=== PATIENT | female | born 1975 | race Caucasian/White ===

== ENCOUNTER 2019-08-17 13:02 | Emergency (ER) | payer BC, OTHER ==
[~2019-08-17] VITALS: Ht 160 cm; Wt 65.0 kg
[2019-08-17] MEDS ORDERED: LACTATED RINGERS 1,000 ML IV ONE ×2 (13:09→13:14)
[2019-08-17] MEDS ORDERED: ASPIRIN 81 MG CHEW (CHILDREN'S ASA) PO ONE (13:15)
[2019-08-17] MEDS ORDERED: NITROGLYCERIN 0.4 MG SL TABS BTL 25'S SL PRN (13:15)
--- NOTE | 2019-08-17 13:18 | NUR ---
This RN called [facility] Walk-in clinic to receive report on this patient that was sent to ER via ambulance. Pt was driving from [place] and 1 hour prior to arriving at walk-in clinic the patient started to have chest pain that radiated to her back and had nausea. Pt's vital signs were 90 heart rate, 150/80 blood pressure, 98% on room air and EKG was remarkable. Pt has history of anxiety. Pt has been on statins. (1) 81 mg of aspirin was given at clinic.
--- NOTE | 2019-08-17 13:22 | ED Chest Pain ---
General Chief Complaint: Chest Pain Stated Complaint: CHEST PAIN Source: patient, EMS Exam Limitations: no limitations History of Present Illness Date Seen by Provider: Aug 17, 2019 Time Seen by Provider: 13:07 Initial Comments Patient arrives the ER from urgent care walk-in by EMS with chief complaint of chest pain substernal radiating to her back mostly as pressure. She says it started out doubling her over but now is about a 1 out of 10. She was trying to get home to [place] where she lives and where her primary care doctor is but she said she could not make it. The urgent care gave her 81 mg of aspirin and obtain vital signs heart rate 90, blood pressure 150/80, oxygen sats 98% on room air and an EKG that did not demonstrate ST elevation VT. EMS obtained a twelve-lead which did not demonstrate any ST changes and transported the patient on 2 L by nasal cannula. Patient has no baseline oxygen dependency nor personal heart disease nor family medical history. She does have a history of high cholesterol but did not tolerate statins due to them causing memory loss. She has a history of hypertension but no diabetes or tobacco dependence. She's never experienced a pain and pressure like this. She does of a history of anxiety and has tried several anti-anxiety medicines but has not been on anything for the past year. She has no history of panic attacks. She has no history of GERD or indigestion. She did not take anything for her symptoms other than what she was given. She says that she and her have been working on demolishing a house for the past week and on Friday she started feeling tired and having increased pain and sensitivity all over her skin. She thought maybe she was exposed to something when they were demolishing the house. She's had malaise, fatigue for the past couple days and spent most of the day resting. Her chest pain began today while she was driving home. She denies nausea, fever or chills. She did wake up yesterday with sweats after a nap. She does not take hormone replacement therapy or oral contraceptives. She has a history of hysterectomy. Allergies and Home Medications Allergies Coded Allergies: No Known Drug Allergies (Unverified , 08/17/19) Home Medications Azithromycin 250 Mg Tablet, 250 MG PO DAILY Prescribed by: MARIAJOSE TOVAR on 08/17/19 9786 Cefdinir 300 Mg Capsule, 300 MG PO BID Prescribed by: MARIAJOSE TOVAR on 08/17/19 9260 Patient Home Medication List Home Medication List Reviewed: Yes Review of Systems Review of Systems Constitutional: No chills, No diaphoresis, No fever; malaise, weakness EENTM: No Blurred Vision, No Double Vision Respiratory: Denies Cough, Denies Shortness of Air Cardiovascular: See HPI, Chest Pain; Denies Edema Gastrointestinal: Denies Abdominal Pain, Denies Constipated, Denies Diarrhea, Denies Nausea, Denies Poor Fluid Intake, Denies Vomiting Genitourinary: Denies Burning, Denies Discharge Musculoskeletal: No back pain, No joint pain Skin: No pruritus, No rash Psychiatric/Neurological: Denies Headache, Denies Numbness All Other Systems Reviewed Negative Unless Noted: Yes Past Xixllmw-Zutayy-Ovooms Hx Patient Social History Alcohol Use: Denies Use Recreational Drug Use: No Smoking Status: Never a Smoker Physical Exam Vital Signs Vital Signs - First Documented 08/17/19 08/17/19 13:02 13:10 Temp 36.2 Pulse 87 Resp 18 B/P (MAP) 125/84 (98) Pulse Ox 99 O2 Delivery Room Air Capillary Refill : Height, Weight, BMI Height: '" Weight: lbs. oz. kg; BMI Method: General Appearance: WD/WN, Anxious, Mild Distress HEENT: PERRL/EOMI, Pharynx Normal, Moist Mucous Membranes Neck: Full Range of Motion, Normal Inspection Respiratory: Chest Non Tender, Lungs Clear, Normal Breath Sounds, No Accessory Muscle Use, No Respiratory Distress Cardiovascular: Regular Rate, Rhythm, No Edema, No Gallop, No JVD, No Murmur, Normal Peripheral Pulses Gastrointestinal: Normal Bowel Sounds, No Organomegaly, Soft, Tenderness (mild, epigastric) Extremity: Normal Capillary Refill, Normal Inspection, Normal Range of Motion, Non Tender, No Calf Tenderness Neurologic/Psychiatric: Alert, Oriented x3, No Motor/Sensory Deficits Skin: Normal Color, Warm/Dry Progress/Results/Core Measures Results/Orders Lab Results Laboratory Tests Test 08/17/19 13:08 08/17/19 14:50 08/17/19 15:04 Range/Units White Blood Count 4.9 4.3-11.0 10^3/uL Red Blood Count 4.56 4.35-5.85 10^6/uL Hemoglobin 13.5 11.5-16.0 G/DL Hematocrit 40 35-52 % Mean Corpuscular Volume 88 80-99 FL Mean Corpuscular Hemoglobin 30 25-34 PG Mean Corpuscular Hemoglobin Concent 34 32-36 G/DL Red Cell Distribution Width 12.7 10.0-14.5 % Platelet Count 169 130-400 10^3/uL Mean Platelet Volume 9.8 7.4-10.4 FL Neutrophils (%) (Auto) 59 42-75 % Lymphocytes (%) (Auto) 31 12-44 % Monocytes (%) (Auto) 9 0-12 % Eosinophils (%) (Auto) 0 0-10 % Basophils (%) (Auto) 0 0-10 % Neutrophils # (Auto) 2.9 1.8-7.8 X 10^3 Lymphocytes # (Auto) 1.5 1.0-4.0 X 10^3 Monocytes # (Auto) 0.4 0.0-1.0 X 10^3 Eosinophils # (Auto) 0.0 0.0-0.3 10^3/uL Basophils # (Auto) 0.0 0.0-0.1 10^3/uL Prothrombin Time 12.1 L 12.2-14.7 SEC INR Comment 0.9 0.8-1.4 Activated Partial Thromboplast Time 27 24-35 SEC Sodium Level 137 135-145 MMOL/L Potassium Level 4.0 3.6-5.0 MMOL/L Chloride Level 103 98-107 MMOL/L Carbon Dioxide Level 20 L 21-32 MMOL/L Anion Gap 14 5-14 MMOL/L Blood Urea Nitrogen 13 7-18 MG/DL Creatinine 0.82 0.60-1.30 MG/DL Estimat Glomerular Filtration Rate > 60 BUN/Creatinine Ratio 16 Glucose Level 105 70-105 MG/DL Calcium Level 9.0 8.5-10.1 MG/DL Corrected Calcium 9.0 8.5-10.1 MG/DL Magnesium Level 1.7 1.6-2.4 MG/DL Total Bilirubin 0.2 0.1-1.0 MG/DL Aspartate Amino Transf (AST/SGOT) 18 5-34 U/L Alanine Aminotransferase (ALT/SGPT) 12 0-55 U/L Alkaline Phosphatase 75 40-136 U/L Myoglobin 21.0 10.0-92.0 NG/ML Troponin I < 0.30 < 0.30 <0.30 NG/ML Pro-B-Type Natriuretic Peptide 15.3 <75.0 PG/ML Total Protein 6.9 6.4-8.2 GM/DL Albumin 4.0 3.2-4.5 GM/DL Lipase 33 8-78 U/L My Orders Orders - MARIAJOSE TOVAR Lactated Ringers (Lr 1000 Ml Iv Solution (08/17/19 13:09) Ed Iv/Invasive Line Start (08/17/19 13:14) Lactated Ringers (Lr 1000 Ml Iv Solution (08/17/19 13:14) Cbc With Automated Diff (08/17/19 13:14) Magnesium (08/17/19 13:14) Chest 1 View Ap/Pa Only (08/17/19 13:14) Ekg Tracing (08/17/19 13:14) Comprehensive Metabolic Panel (08/17/19 13:14) Myoglobin Serum (08/17/19 13:14) Protime With Inr (08/17/19 13:14) Partial Thromboplastin Time (08/17/19 13:14) O2 (08/17/19 13:14) Monitor-Rhythm Ecg Trace Only (08/17/19 13:14) Lipid Panel (08/18/19 06:00) Aspirin Chewable Tablet (Baby Aspirin Ch (08/17/19 13:15) Nitroglycerin 0.4 Mg Btl 25's (Nitrostat (08/17/19 13:15) Ed Iv/Invasive Line Start (08/17/19 13:14) Creatine Kinase (08/17/19 13:14) Lipase (08/17/19 13:14) Troponin I Fs (08/17/19 13:14) Probnp Fs (08/17/19 13:14) Ct Angio Chest W (08/17/19 13:14) Iohexol Injection (Omnipaque 350 Mg/Ml 1 (08/17/19 13:30) Contrast Received (Contrast Received) (08/17/19 13:30) Sodium Chloride Flush (Catheter Flush Sy (08/17/19 13:30) Ns (Ivpb) (Sodium Chloride 0.9% Ivpb Bag (08/17/19 13:30) Ct Abdomen/Pelvis W (08/17/19 14:12) Blood Culture (08/17/19 14:33) Coronavirus Sars-Cov-2 So 2019 (08/17/19 14:33) Ceftriaxone For Iv Use (Rocephin For I (08/17/19 14:45) Azithromycin Tablet (Zithromax Tablet) (08/17/19 14:45) Troponin I Fs (08/17/19 14:54) Medications Given in ED Current Medications Medications Dose Ordered Sig/Rosi Route Start Time Stop Time Status Last Admin Dose Admin Aspirin 243 mg ONCE ONCE PO 08/17/19 13:15 08/17/19 13:17 DC 08/17/19 13:22 243 MG Azithromycin 500 mg ONCE ONCE PO 08/17/19 14:45 08/17/19 14:46 DC 08/17/19 14:49 500 MG Ceftriaxone Sodium 1000 mg/ Sterile Water 10 ml @ 200 mls/hr ONCE ONCE IV 08/17/19 14:45 08/17/19 14:47 DC 08/17/19 14:49 200 MLS/HR Iohexol 125 ml ONCE ONCE IV 08/17/19 13:30 08/17/19 13:31 DC 08/17/19 14:18 125 ML Lactated Ringer's 1,000 ml @ 0 mls/hr Q0M ONCE IV 08/17/19 13:14 08/17/19 13:17 DC 08/17/19 13:22 999 MLS/HR Nitroglycerin 0.4 mg UD PRN SL 08/17/19 13:15 08/17/19 13:22 0.4 MG Sodium Chloride 10 ml NEEDED PRN IV 08/17/19 13:30 08/17/19 14:18 10 ML Sodium Chloride 100 ml ONCE ONCE IV 08/17/19 13:30 08/17/19 13:31 DC 08/17/19 14:17 80 ML Vital Signs/I&O 08/17/19 08/17/19 13:02 13:10 Temp 36.2 Pulse 87 Resp 18 B/P (MAP) 125/84 (98) Pulse Ox 99 O2 Delivery Room Air Room Air Progress Progress Note #1: Time: 13:23 Progress Note We'll give her a liter lactated Ringer's because she could be experiencing heat exhaustion related to demolishing a house for the past week with exposure. She received 81 mg aspirin at the urgent care clinics were going to give her 243 mg aspirin to chew and swallow. We'll trial nitroglycerin. Chest x-ray and CT scan to rule out AAA, pulmonary embolism. On room air she is running 98% and has no tachycardia. She does have risk factors for coronary disease including hypertension, hyperlipidemia. GERD is a possibility as well. Anxiety certainly plays a role in this and we have offered her something for her anxiety while we are doing this workup. She has declined at this time. If her initial troponin is negative and we do not find anything else emergent then her heart score would be to points putting her at low risk. 0.9-1.7% 30-day MACE; Repeat troponin at 3 hours and if negative, discharge home with outpatient follow-up. Progress Note #2: Time: 14:21 Progress Note Patient was noted to have a large distended gas bubble on the service line coordinator imaging for her CT and she had tenderness on palpation of her abdomen so a CT abdomen and pelvis was ordered in conjunction with a CT angiogram without having any extra contrast looking for obstruction. Progress Note #3: Time: 14:46 Progress Note Patient has pneumonia and regular Rocephin and azithromycin. We discussed testing for COVID-19 and she has consented to do this. She does not need hospitalization at this time. She has aseptic vital signs and no oxygen dependency. No rest or distress. Plan to treat her outpatient with antibiotics and follow-up in one week with her primary care doctor. We will obtain cultures in case her situation worsens. Delta troponin at 1500. Initial ECG Impression Date: Aug 17, 2019 Initial ECG Impression Time: 12:06 Initial ECG Rate: 94 Initial ECG Rhythm: Normal Sinus Initial ECG Intervals: Normal Initial ECG Impression: Normal Initial ECG Comparisson: No Previous ECG Available Comment Urgent care 12-lead EKG: Normal sinus rhythm without clinically relevant ST elevation or depression. Borderline prolonged QTc 460 ms. EKG #1: EKG Time: 12:54 Rate: 87 Rhythm: Normal Sinus Intervals: Normal ECG Comparisson: Unchanged ECG Impression: Normal Comment 12-lead from EMS. Normal sinus rhythm without clinically relevant ST elevation or depression. EKG #2: EKG Time: 13:09 Rate: 82 Rhythm: Normal Sinus Intervals: Normal ECG Comparisson: Unchanged ECG Impression: Normal Comment Initial EKG in the ER: Normal sinus rhythm without any ST-T wave elevation or depression. Diagnostic Imaging Diagonstic Imaging: Xray Plain Films/CT/US/NM/MRI: chest (1v) Comments NAME: MARILIN CHRISTENSEN [facility] REC#: [id number] PT STATUS: REG ER : 1975 PHYSICIAN: MARIAJOSE TOVAR MD ADMIT DATE: 08/17/19/ER FS Draft Date of Exam:08/17/19 CHEST 1 VIEW AP/PA ONLY INDICATION: Chest pain and pressure. TIME OF EXAM: 01:25 p.m. COMPARISON: No prior studies are available for comparison. FINDINGS: The heart size is normal. There is airspace infiltrate in the right base consistent with pneumonia. The pulmonary vascularity is normal. The left lung is clear. No effusion or pneumothorax is seen. IMPRESSION: Right basilar pneumonia. Dictated on workstation # [id number] Dict: 08/17/19 1338 Trans: 08/17/19 1341 [facility] [id number] Interpreted by: BRIEN MACHADO MD Electronically signed by: Reviewed: Reviewed by Tx Diagonstic Imaging: CT (angiogram) Plain Films/CT/US/NM/MRI: chest Comments NAME: AMRILIN CHRISTENSEN [facility] REC#: [id number] PT STATUS: REG ER : 1975 PHYSICIAN: MARIAJOSE TOVAR MD ADMIT DATE: 08/17/19/ER FS Draft Date of Exam:08/17/19 CT ANGIO CHEST W PROCEDURE: CT angiography of the chest with contrast. TECHNIQUE: Multiple contiguous axial images were obtained through the chest after uneventful bolus administration of intravenous contrast. 3D reconstructed CTA MIP acquisitions were also performed. Auto Exposure Controls were utilized during the CT exam to meet ALARA standards for radiation dose reduction. INDICATION: Chest pain. COMPARISON: No prior CT study is available for comparison. FINDINGS: Evaluation of the pulmonary arterial system is without evidence of thromboembolism. No filling defects are seen within the central, lobar, or segmental branches. No pericardial or pleural fluid is identified. Note is made of a circumscribed nodule in the right breast medially measuring 9 mm. Parenchymal evaluation does show some airspace infiltrate in the posterolateral right lower lobe, consistent with pneumonia. This correlates with the abnormality noted on the chest x-ray. IMPRESSION: 1. No evidence of pulmonary embolism or thoracic aortic dissection. 2. Right lower lobe pneumonia. Dictated on workstation # [id number] Dict: 08/17/19 1432 Trans: 08/17/19 1436 [id number] Interpreted by: BRIEN MACHADO MD Electronically signed by: Reviewed: Reviewed by Tx Diagonstic Imaging: CT (with IV contrast) Plain Films/CT/US/NM/MRI: abdomen, pelvis Comments [facility] [place] NAME: MARILIN CHRISTENSEN [facility] REC#: [id number] PT STATUS: REG ER : 1975 PHYSICIAN: MARIAJOSE TOVAR MD ADMIT DATE: 08/17/19/ER FS Draft Date of Exam:08/17/19 CT ABDOMEN/PELVIS W PROCEDURE: CT abdomen and pelvis with contrast. TECHNIQUE: Multiple contiguous axial images were obtained through the abdomen and pelvis after administration of intravenous contrast. Auto Exposure Controls were utilized during the CT exam to meet ALARA standards for radiation dose reduction. INDICATION: Worsening chest pain. COMPARISON: No prior studies are available for comparison. FINDINGS: The air space infiltrate in the right lower lobe, consistent with pneumonia, is again noted. The liver and gallbladder are unremarkable. No biliary ductal dilatation is identified. The pancreas and spleen are unremarkable. No adrenal mass is detected. The kidneys demonstrate normal excretion of contrast. The ureters are unremarkable. The bladder is unremarkable. The aorta is nonaneurysmal. The small and large bowel loops are of normal caliber. There is no obstruction. The appendix is visualized and unremarkable. The uterus appears to be absent or atrophic. There is no free fluid or fluid collection. IMPRESSION: 1. Right lower lobe pneumonia. 2. No acute feature in the abdomen or pelvis. Dictated on workstation # [id number] Dict: 08/17/19 1434 Trans: 08/17/19 1438 JAYDEN [id number] Interpreted by: BRIEN MACHADO MD Electronically signed by: Reviewed: Reviewed by Me Departure Impression Primary Impression: Pneumonia Qualified Codes: J18.1 - Lobar pneumonia, unspecified organism Disposition: HOME, SELF-CARE Condition: Stable Departure-Patient Inst. Decision time for Depature: 15:28 Patient Instructions: Pneumonia, Adult (DC) Add. Discharge Instructions: I suspect your discomfort, weakness and malaise is caused by pneumonia. We'll going to put you on 2 antibiotics to take to completion. Drink lots of fluids, especially water. Cefdinir 1 capsule twice a day for the next 10 days. Start this on 08/18/19. Azithromycin 250 mg capsule daily for the next 4 days. Start this on 08/18/19. Call your doctor's office in follow-up within the next week. We will call you if your COVID-19 swab is positive in the next 1-2 days. If your symptoms worsen or you experience worsening chest pain, shortness of breath or other symptoms then you should present to the nearest ER promptly. We have obtained blood cultures and will call you if they become positive over the next 5 days. If you have chest pain, body aches or fever you may use Tylenol 1000 mg every 8 hours as necessary. Additionally you may use ibuprofen 800 mg every 8 hours as necessary. All discharge instructions reviewed with patient and/or family. Voiced unders tanding. Scripts Azithromycin (Azithromycin) 250 Mg Tablet 250 MG PO DAILY for 4 Days, #4 TAB 0 Refills Prov: MARIAJOSE TOVAR 08/17/19 Cefdinir (Cefdinir) 300 Mg Capsule 300 MG PO BID for 10 Days, #14 CAP 0 Refills Prov: MARIAJOSE TOVAR 08/17/19 Work/School Note: Work Release Form Date Seen in the Emergency Department: Aug 17, 2019 Return to Work: Aug 18, 2019 Restrictions: No Restrictions MARIAJOSE TOVAR Aug 17, 2019 13:22
[2019-08-17 13:23] LABS: HEMATOCRIT 40 % (35-52); HEMOGLOBIN 13.5 G/DL (11.5-16.0); LYMPHOCYTES % (AUTO) 31 % (12-44); MEAN CORPUSCULAR HEMOGLOBIN 30 PG (25-34); MEAN CORPUSCULAR HGB CONC 34 G/DL (32-36); MEAN CORPUSCULAR VOLUME 88 FL (80-99); MEAN PLATELET VOLUME 9.8 FL (7.4-10.4); MONOCYTES % (AUTO) 9 % (0-12); NEUTROPHILS % (AUTO) 59 % (42-75); PLATELET COUNT 169 10^3/uL (130-400); RED CELL DISTRIBUTION WIDTH 12.7 % (10.0-14.5); WHITE BLOOD COUNT 4.9 10^3/uL (4.3-11.0)
[2019-08-17 13:24] LABS: BASOPHILS % (AUTO) 0 % (0-10); EOSINOPHILS % (AUTO) 0 % (0-10); LYMPHOCYTES # (AUTO) 1.5 X 10^3 (1.0-4.0); MONOCYTES # (AUTO) 0.4 X 10^3 (0.0-1.0); NEUTROPHILS # (AUTO) 2.9 X 10^3 (1.8-7.8)
[2019-08-17] MEDS ORDERED: IOHEXOL 350 MG/ML 150 ML (OMNIPAQUE 350) VIAL IV ONE (13:30)
[2019-08-17] MEDS ORDERED: CATHETER FLUSH 10 ML SYR IV PRN (13:30)
[2019-08-17] MEDS ORDERED: HOLD METFORMIN - RECEIVED CONTRAST 20 ML VIAL IV SCH (13:30)
[2019-08-17] MEDS ORDERED: NS 100 ML (IVPB) BAG IV ONE (13:30)
[2019-08-17 13:34] LABS: INR 0.9 (0.8-1.4); PROTHROMBIN TIME PATIENT 12.1 SEC (12.2-14.7)
--- NOTE | 2019-08-17 13:41 | Diagnostic Imaging Report ---
INDICATION: Chest pain and pressure. TIME OF EXAM: 01:25 p.m. COMPARISON: No prior studies are available for comparison. FINDINGS: The heart size is normal. There is airspace infiltrate in the right base consistent with pneumonia. The pulmonary vascularity is normal. The left lung is clear. No effusion or pneumothorax is seen. IMPRESSION: Right basilar pneumonia. Dictated by: Dictated on workstation # [id number]
--- NOTE | 2019-08-17 13:44 | NUR ---
Patient's called at this time. I got a verbal approval from patient to give him an update. This RN informed Travon that we are waiting for results to come back. This RN took his phone number down and told him we would give him a call when we find out more.
[2019-08-17 13:45] LABS: ALANINE AMINOTRANSFERASE 12 U/L (0-55); ALKALINE PHOSPHATASE 75 U/L (40-136); BILIRUBIN,TOTAL 0.2 MG/DL (0.1-1.0); BUN/CREATININE RATIO 16; CARBON DIOXIDE 20 MMOL/L (21-32); CHLORIDE 103 MMOL/L (98-107); CREATININE SERUM 0.82 MG/DL (0.60-1.30); GFR ESTIMATED > 60; GLUCOSE 105 MG/DL (70-105); MAGNESIUM 1.7 MG/DL (1.6-2.4); SODIUM 137 MMOL/L (135-145)
[2019-08-17 13:46] LABS: LIPASE 33 U/L (8-78); TOTAL PROTEIN 6.9 GM/DL (6.4-8.2)
--- NOTE | 2019-08-17 14:36 | Diagnostic Imaging Report ---
PROCEDURE: CT angiography of the chest with contrast. TECHNIQUE: Multiple contiguous axial images were obtained through the chest after uneventful bolus administration of intravenous contrast. 3D reconstructed CTA MIP acquisitions were also performed. Auto Exposure Controls were utilized during the CT exam to meet ALARA standards for radiation dose reduction. INDICATION: Chest pain. COMPARISON: No prior CT study is available for comparison. FINDINGS: Evaluation of the pulmonary arterial system is without evidence of thromboembolism. No filling defects are seen within the central, lobar, or segmental branches. No pericardial or pleural fluid is identified. Note is made of a circumscribed nodule in the right breast medially measuring 9 mm. Parenchymal evaluation does show some airspace infiltrate in the posterolateral right lower lobe, consistent with pneumonia. This correlates with the abnormality noted on the chest x-ray. IMPRESSION: 1. No evidence of pulmonary embolism or thoracic aortic dissection. 2. Right lower lobe pneumonia. Dictated by: Dictated on workstation # [id number]
--- NOTE | 2019-08-17 14:38 | Diagnostic Imaging Report ---
PROCEDURE: CT abdomen and pelvis with contrast. TECHNIQUE: Multiple contiguous axial images were obtained through the abdomen and pelvis after administration of intravenous contrast. Auto Exposure Controls were utilized during the CT exam to meet ALARA standards for radiation dose reduction. INDICATION: Worsening chest pain. COMPARISON: No prior studies are available for comparison. FINDINGS: The air space infiltrate in the right lower lobe, consistent with pneumonia, is again noted. The liver and gallbladder are unremarkable. No biliary ductal dilatation is identified. The pancreas and spleen are unremarkable. No adrenal mass is detected. The kidneys demonstrate normal excretion of contrast. The ureters are unremarkable. The bladder is unremarkable. The aorta is nonaneurysmal. The small and large bowel loops are of normal caliber. There is no obstruction. The appendix is visualized and unremarkable. The uterus appears to be absent or atrophic. There is no free fluid or fluid collection. IMPRESSION: 1. Right lower lobe pneumonia. 2. No acute feature in the abdomen or pelvis. Dictated by: Dictated on workstation # [id number]
[2019-08-17] MEDS ORDERED: cefTRIAXone FOR IV USE 1,000 MG in WATER (STERILE) FOR INJECTION 10 ML IV ONE (14:45)
[2019-08-17] MEDS ORDERED: AZITHROMYCIN 250 MG TAB (ZITHROMAX) PO ONE (14:45)
[2019-08-17] MEDS ORDERED: AZIT250T12 PO (14:53)
[2019-08-17] MEDS ORDERED: CEFD300C3 PO (14:53)
--- OUTSIDE RECORDS SUMMARY | 2019-08-17 15:07 | XMS REPORT | Continuity of Care Document ---
Demographics Preferred Language Unknown Marital Status Unknown Congregation Affiliation Unknown Race Unknown Ethnic Group Unknown Author Organization Unknown Address Unknown Phone Unavailable Allergies There is no data. Medications There is no data. Problems There is no data. Procedures There is no data. Results Test Result Range Complete blood count (CBC) with automate d white blood cell (WBC) differential - 08/17/19 13:08 Blood leukocytes automated count (number/volume) 4.9 10*3/uL 4.3-11.0 Blood erythrocytes automated count (number/volume) 4.56 10*6/uL 4.35-5.85 Venous blood hemoglobin measurement (mass/volume) 13.5 g/dL 11.5-16.0 Blood hematocrit (volume fraction) 40 % 35-52 Automated erythrocyte mean corpuscular volume 88 [ foz_us] 80-99 Automated erythrocyte mean corpuscular h emoglobin (mass per erythrocyte) 30 pg 25-34 Automated erythrocyte mean corpuscular h emoglobin concentration measurement (mass/volume) 34 g/dL 32-36 Automated erythrocyte distribution width ratio 12. 7 % 10.0- 14.5 Automated blood platelet count (count/volume) 169 10*3/uL 130-400 Automated blood platelet mean volume measurement 9.8 [foz_us] 7.4-10.4 Automated blood neutrophils/100 leukocytes 59 % 42-75 Automated blood lymphocytes/100 leukocytes 31 % 12-44 Blood monocytes/100 leukocytes 9 % 0-12 Automated blood eosinophils/100 leukocytes 0 % 0-10 Automated blood basophils/100 leukocytes 0 % 0-10 Blood neutrophils automated count (number/volume) 2.9 10*3 1.8-7.8 Blood lymphocytes automated count (number/volume) 1.5 10*3 1.0-4.0 Blood monocytes automated count (number/volume) 0. 4 10*3 0.0-1.0 Automated eosinophil count 0.0 10*3/uL 0 .0-0.3 Automated blood basophil count (count/volume) 0.0 10*3/uL 0.0-0.1 PT panel in platelet poor plasma by coag ulation assay - 08/17/19 13:08 Prothrombin time (PT) in platelet poor plasma by coagu lation assay 12.1 s 12.2-14.7 INR in platelet poor plasma or blood by coagulation as say 0.9 0.8-1.4 Activated partial thromboplastin time (a PTT) in platelet poor plasma bycoagulation assay - 08/17/19 13:08 Activated partial thromboplastin time (a PTT) in platelet poor plasma bycoagulation assay 27 s 24-35 TROPONIN I FS - 08/17/19 13:08 TROPONIN I FS < 0.30 <0.30 PROBNP FS - 08/17/19 13:08 PROBNP FS 15.3 pg/mL <75.0 Comprehensive metabolic panel - 08/17/19 13:08 Serum or plasma sodium measurement (moles/volume) 137 mmol/L 135-145 Serum or plasma potassium measurement (moles/volume) 4.0 mmol/L 3.6-5.0 Serum or plasma chloride measurement (moles/volume) 103 mmol/L 98-107 Carbon dioxide 20 mmol/L 21-32 Serum or plasma anion gap determination (moles/volume) 14 mmol/L 5-14 Serum or plasma urea nitrogen measurement (mass/volume ) 13 mg/dL 7-18 Serum or plasma creatinine measurement (mass/volume) 0.82 mg/dL 0.60-1.30 Serum or plasma urea nitrogen/creatinine mass ratio 16 NRG Serum or plasma creatinine measurement w ith calculation of estimated glomerular filtration rate > NRG Serum or plasma glucose measurement (mass/volume) 105 mg/dL 70-105 Serum or plasma calcium measurement (mass/volume) 9.0 mg/dL 8.5-10.1 Serum or plasma total bilirubin measurement (mass/volu me) 0.2 mg/dL 0.1-1.0 Serum or plasma alkaline phosphatase pavel surement (enzymatic activity/volume) 75 U/L 40-136 Serum or plasma aspartate aminotransfera se measurement (enzymatic activity/volume) 18 U/L 5-34 Serum or plasma alanine aminotransferase measurement (enzymatic activity/volume) 12 U/L 0-55 Serum or plasma protein measurement (mass/volume) 6.9 g/dL 6.4-8.2 Serum or plasma albumin measurement (mass/volume) 4.0 g/dL 3.2-4.5 CALCIUM CORRECTED 9.0 mg/dL 8.5-10.1 Magnesium - 08/17/19 13:08 Magnesium 1.7 mg/dL 1.6-2.4 Myoglobin, serum - 08/17/19 13:08 Myoglobin, serum 21.0 ng/mL 10.0-92.0 Lipase - 08/17/19 13:08 Lipase 33 U/L 8-78 Encounters ACCT No. Visit Date/Time Discharge Status Pt. Type Provider Facility Loc./Unit Complaint [id number] 08/17/2019 13:24:00 Document Registration
[2019-08-17 15:33] VITALS: BP 114/71
[2019-08-17 15:34] LABS: CREATINE KINASE 54 U/L (29-168)
== END 2019-08-17 15:35 | disposition home or self-care (01) ==
LOC: ER FS 13:04
DX: J18.9 Pneumonia, unspecified organism (principal); Z20.828 Contact with and (suspected) exposure to other viral communicable diseases
CPT/HCPCS: 36415; 71045; 71275; 74177; 80053; 82550; 83690; 83735; 83874; 83880; 84484; 85025; 85610; 85730; 87040; 93005; 93041; 99284; U0002; 87635